=== PATIENT | female | born 2000 | race Caucasian/White ===

== ENCOUNTER 2024-01-23 08:00 | Outpatient (CLI) | payer OTHER ==
[2024-01-23 21:19] LABS: CHLAMYDIA TRACHOMATIS DNA NEGATIVE (NEGATIVE); NEISSERIA GONORRHOEAE DNA NEGATIVE (NEGATIVE); TRICHOMONAS VAGINALIS DNA NEGATIVE (NEGATIVE)
== END 2024-01-23 23:59 | disposition home or self-care (01) ==
LOC: LAB.WC 08:00
PROVIDERS: ATTEND Obstetrics & Gynecology
DX: Z11.3 Encounter for screening for infections with a predominantly sexual mode of transmission (principal)
CPT/HCPCS: 87491; 87591; 87661

== ENCOUNTER 2024-03-12 14:47 | Outpatient (CLI) | payer OTHER ==
--- NOTE | 2024-03-12 18:24 | Ultrasound Report ---
PROCEDURE: OB Anatomy Scan INDICATIONS: SUPERVISION OF NORMAL OUTSIDE/PRIOR DATING DATA: Last menstrual period (LMP): 10/16/2023. LMP-based estimated date of delivery (ALDA): 07/22/2024. First dating scan (date and location): 01/02/2024. Estimated date of delivery (ALDA) from first dating scan: 07/26/2024. The below data below was generated using the working ALDA of 07/26/2024 TECHNIQUE: Ultrasound of the gravid uterus was performed and recorded. COMPARISON: 01/02/2024 FINDINGS: General: A single live intrauterine gestation is present. Presentation: Variable Placenta: Placental position is posterior without previa. Amniotic fluid index: 9.7 cm, 5.6 percentile for gestational age. heart rate: 143 beats per minute. Maternal cervical canal: 3.3 cm long; normal length is 2.5 cm or more. biometrics: Biparietal diameter: 4.5 cm, 19 week 4 day, 4.6 percentile Head circumference: 17.5 cm, 20 week 6 day, 6.6 percentile Abdominal circumference: 15.6 cm, 20 week 4 day, 32.2 percentile Femur length: 3.4 cm, 20 week 4 day, 23 percentile Estimated gestational age by working dates: 21 week 1 day Composite gestational age by current ultrasound: 20 week 2 day Estimated weight and percentile: 365 g, 19.9 percentile Measurement variability in biometric dating: +/- 10 days from 12-20 weeks gestation, +/- 2 weeks from 20-30 weeks gestation, +/- 3 weeks at 30 weeks gestation or more. Anatomic survey: Neuro: Ventricles are non-dilated at less than 10 mm. Cisterna magna is normal at 3-11 mm. Cerebel lum is normal in size and morphology. Nuchal skin fold: Normal at less than 6 mm between 14-20 weeks gestational age. Face: Nose and lips, facial profile are normal. Spine: No evidence for spina bifida. Heart: 4-chambered heart is present. Right ventricular outflow tract not well observed Diaphragm: Diaphragm is intact. Stomach: Left-sided stomach is present. Kidneys: No hydronephrosis. Normal is less than 5 mm in 2nd trimester, less than 7 mm in 3rd trimester. Cord: 3-vessel cord has orthotopic insertion. Bladder: Normal in size. Extremities: All 4 extremities identified. Other: Not applicable. IMPRESSION: Single live intrauterine consistent with 20 week 2 day gestation by current ultrasound Right ventricular outflow tract not well observed on current exam. Attention on follow-up. Otherwise, unremarkable anatomic survey Reviewed by: Simone Ordonez MD on 03/12/2024 5:22 PM AKDT Approved by: Simone Ordonez MD on 03/12/2024 5:22 PM AKDT Station ID: [id number]
== END 2024-03-12 14:48 | disposition home or self-care (01) ==
LOC: DI 14:47
PROVIDERS: ATTEND Obstetrics & Gynecology
DX: Z34.92 Encounter for supervision of normal pregnancy, unspecified, second trimester (principal); Z36.89 Encounter for other specified antenatal screening

== ENCOUNTER 2024-04-09 12:36 | Outpatient (CLI) | payer OTHER ==
--- NOTE | 2024-04-09 15:51 | Ultrasound Report ---
PROCEDURE: OB Follow up INDICATIONS: SUPERVISION OF OUTSIDE/PRIOR DATING DATA: Last menstrual period (LMP): 10/16/2023. LMP-based estimated date of delivery (ALDA): 07/22/2024. First dating scan (date and location): 01/02/2024. Estimated date of delivery (ALDA) from first dating scan: 07/26/2024. The below data below was generated using the sonographic ALDA of 07/26/2024 TECHNIQUE: Real-time scanning was performed of the fetus, with image documentation and biometric measurements. Endovaginal scanning: Not performed. COMPARISON: 03/12/2024 FINDINGS: General: A single living intrauterine gestation is present. Presentation: Vertex Placenta: Placental position is posterior, without previa. Amniotic fluid index: 11.6 cm, deepest pocket is 3.3 cm, normal for gestational age. heart rate: 143 beats per minute. Maternal cervical canal: Closed and 2.9 cm long; normal length is 2.5 cm or more. Estimated gestational age from initial scan: 24 weeks 4 days Other: 4 chambered heart and normal right ventricular outflow tract was well seen. IMPRESSION: Single live intrauterine is in vertex presentation. There was good visualization of a normal heart and right ventricular outflow tract there by com pleting a normal anatomic survey. Closed cervix and normal amniotic fluid volume. Posterior placenta. Reviewed by: Shelly Ortiz MD on 04/09/2024 3:49 PM PDT Approved by: Shelly Ortiz MD on 04/09/2024 3:49 PM PDT Station ID: [id number]
== END 2024-04-09 12:37 | disposition home or self-care (01) ==
LOC: DI 12:36
PROVIDERS: ATTEND Obstetrics & Gynecology
DX: Z34.92 Encounter for supervision of normal pregnancy, unspecified, second trimester (principal)

== ENCOUNTER 2024-04-16 11:09 | Outpatient (CLI) | payer OTHER ==
[2024-04-16 12:16] LABS: HCT - HEMATOCRIT 38.2 % (37.0-47.0); HGB - HEMOGLOBIN 12.5 g/dL (12.0-16.0); MEAN CORPUSCULAR HEMOGLOBIN 29.8 pg (27.0-31.0); MEAN CORPUSCULAR HGB CONC 32.7 g/dL (32.0-36.0); RED BLOOD COUNT 4.2 10^6/uL (4.20-5.40); RED CELL DISTRIBUTION WIDTH 13.2 % (12.0-15.0); WHITE BLOOD COUNT 12.2 x10^3/uL (4.8-10.8)
[2024-04-17 05:12] LABS: RPR Non Reactive (Non Reactive)
== END 2024-04-16 11:10 | disposition home or self-care (01) ==
LOC: LAB 11:09
PROVIDERS: ATTEND Nurse Practitioner
DX: Z34.90 Encounter for supervision of normal pregnancy, unspecified, unspecified trimester (principal)
CPT/HCPCS: 36415; 82950; 85027; 86592

== ENCOUNTER 2024-06-25 12:04 | Outpatient (CLI) | payer OTHER ==
--- NOTE | 2024-06-26 16:43 | Ultrasound Report ---
PROCEDURE: OB Follow up INDICATIONS: UTERINE SIZE DATE DISCREPENCY OUTSIDE/PRIOR DATING DATA: Last menstrual period (LMP): 10/16/2023. LMP-based estimated date of delivery (ALDA): 07/22/2024. First dating scan (date and location): 01/02/2024. Estimated date of delivery (ALDA) from first dating scan: 07/26/2024. The below data below was generated using the working ALDA of 07/26/2024 TECHNIQUE: Ultrasound of the gravid uterus was performed and recorded. COMPARISON: None. FINDINGS: General: A single live intrauterine gestation is present. Presentation: Vertex Placenta: Placental position is posterior fundal without previa. Amniotic fluid index: 11.6 cm, within normal limits for gestational age. heart rate: 133 beats per minute. Maternal cervical canal: 3.8 cm long; normal length is 2.5 cm or more. biometrics: Biparietal diameter: 8.3 cm, 33 week 3 day, 6.6 percentile Head circumference: 31.1 cm, 34 week 5 day, 7.3 percentile Abdominal circumference: 31.9 cm, 35 week 6 day, 66.5 percentile Femur length: 6.8 cm, 33 week 0 day, 29.9 percentile Estimated gestational age by working dates: 35 week 4 day Composite gestational age by current ultrasound: 34 week 5 day Estimated weight and percentile: 2630 g, 39.7 percentile Measurement variability in biometric dating: +/- 10 days from 12-20 weeks gestation, +/- 2 weeks from 20-30 weeks gestation, +/- 3 weeks at 30 weeks gestation or more. Other: Not applicable. IMPRESSION: Single live intrauterine consistent with 34 week 5 day gestation by current ultrasound Reviewed by: Simone Ordonez MD on 06/26/2024 3:42 PM ANNE MARIE Approved by: Simone Ordonez MD on 06/26/2024 3:42 PM AKDT Station ID: [id number]
== END 2024-06-25 12:05 | disposition home or self-care (01) ==
LOC: DI 12:04
PROVIDERS: ATTEND Nurse Practitioner
DX: O26.843 Uterine size-date discrepancy, third trimester (principal); Z3A.34 34 weeks gestation of pregnancy; Z36.85 Encounter for antenatal screening for Streptococcus B
CPT/HCPCS: 87797

== ENCOUNTER 2024-06-25 15:54 | Outpatient (CLI) | payer OTHER | END 2024-06-25 15:55 | disposition home or self-care (01) | LOC: LAB.WC 15:54 | PROVIDERS: ATTEND Nurse Practitioner | DX: Z36.85 Encounter for antenatal screening for Streptococcus B (principal) | CPT/HCPCS: 87797 ==

== ENCOUNTER 2024-07-09 15:01 | Outpatient (CLI) | payer OTHER ==
[2024-07-09 15:18] LABS: HGB - HEMOGLOBIN 13.1 g/dL (12.0-16.0); MEAN CORPUSCULAR HEMOGLOBIN 29.2 pg (27.0-31.0); MEAN CORPUSCULAR HGB CONC 32.8 g/dL (32.0-36.0); MEAN CORPUSCULAR VOLUME 89.3 fL (81.0-99.0); MEAN PLATELET VOLUME 10.4 fL (7.9-10.8); RED BLOOD COUNT 4.48 10^6/uL (4.20-5.40); RED CELL DISTRIBUTION WIDTH 13.4 % (12.0-15.0); WHITE BLOOD COUNT 12.8 x10^3/uL (4.8-10.8)
[2024-07-09 15:29] LABS: ALBUMIN 3.4 g/dL (3.2-5.5); BILIRUBIN,TOTAL 0.3 mg/dL (0.2-1.0); CALCIUM 9.2 mg/dL (8.5-10.3); CREATININE 0.4 mg/dL (0.6-1.3); POTASSIUM 3.7 mmol/L (3.5-4.5); TOTAL PROTEIN 6.8 g/dL (6.4-8.9); URIC ACID 5.8 mg/dL (2.3-6.6)
[2024-07-09 15:47] LABS: CREATININE,URINE 149.3 mg/dL; PROTEIN/CREATININE RATIO,URINE 0.2 (<=0.2)
== END 2024-07-09 15:02 | disposition home or self-care (01) ==
LOC: LAB.WC 15:01
PROVIDERS: ATTEND Nurse Practitioner
DX: Z34.90 Encounter for supervision of normal pregnancy, unspecified, unspecified trimester (principal); Z36.85 Encounter for antenatal screening for Streptococcus B; R51.9 Headache, unspecified
CPT/HCPCS: 36415; 80053; 82570; 83615; 84156; 84550; 85027

== ENCOUNTER 2024-07-18 07:33 | Inpatient (IN) | payer OTHER ==
--- NOTE | 2024-07-18 08:19 | HISTORY & PHYSICAL EXAMINATION ---
Admit History - Visit Reason Visit Reason: Contractions, Membranes rupture - : 1 Parity: 0 Premature: 0 Ectopic: 0 : 0 Care: positive: [facility] Risk/History: positive: None Complications This : positive: None Smoking Status: Never smoker - Mother's Labs Mother's Blood Type: positive: B Mother's RH: positive: Positive GBS: positive: Group B Step Negative Rubella Status: positive: Non-immune - Other Maternal History Other Maternal History: This 23 yo @ 39+3 weeks by LMP and confirmed by 10+4 week ultrasound. She was able to get sleep last night but she woke up with a single, intense contraction felt "a pop" and her water broke at about (SROM @0630). She continued to leak clear fluid and her contractions grew more intense and closer together. Upon arrival her cervix was 6/90/-2 and vertex with intact membranes. She is agreeable to admission for expectant labor management at this time. She has been a patient of [facility] care for the duration of her which has remained uncomplicated. No Headache, visual changes or right upper quadrant abdominal pain. Denies significant N/V. Denies urinary urgency or dysuria. In the event of an emergency, accepts the administration of blood products. ROS: All other symptoms reviewed and were negative except per HPI. Recent BP: 102/64 Labs: pending Last u/s EFW: 06/25/2024 EFW 39%, 2630g Total maternal weight gain: 35# OB Hx: G1: Current Medical Hx: No significant Surgical Hx: None Social Hx: Monogamous with male partner. Denies current use of alcohol or tobacco, marijuana or other recreational drugs. Reports that she is safe in current relationship. Family Hx: Denies family history of congenital anomalies, Cystic Fibrosis or chromosomal abnormalities Allergies: NKDA Medications: PNV G1PO LMP: 10/16/2023 ALDA by LMP: 07/22/2024 01/02/2024/10+4 /C/W dates Final ALDA: 07/22/2024 FOB: Jerry sex: It's a BOY! Pre- Weight:107.4 BMI: 18.5 Blood type: B+ Antibody: neg CBC: PLT 274 HCT 39.4 HGB 12.9 RUB: NOT IMMUNE VZV: NOT IMMUNE HBsAg: negative HepC: NR RPR/AB-EIA: NR HIV: NR PAP: Due GC/CT: 01/23 negative HSV: denies in self and partner Genetic testing: Declines Covid: vaccine x2; ill once Flu: did not get last year FAS: 03/12 Placenta: Posterior Cord: 3VC FRANCK: 9.7cm EFW: 365g 19.9%tile 50gm OGCT: 103 TDAP: Given 05/14 Breast Pump: given 05/14 3rd trimester PLT 265; HGB 12.5 HCT 38.2 RPR Negative GBS:Negative Delivery plan: Contraception: Possible Nexplanon. Unsure Physical exam: Normocephalic, atraumatic Cardiac: No edema Lungs: No increased work of breathing Abdomen gravid, soft, nontender. EFW 3000g FHR baseline 145, moderate variability, + accelerations, no decelerations Contractions palpate moderate every 2-3 minutes with soft resting tone SVE 6/90/-2, vertex, grossly ruptured. Clear fluid Mood is good. Assessment: 23 yo @ 39+3 weeks gestation by 10+4 wk U/S Active Labor FHR 145 Cat I GBS NEG Plan: Admit to [facility] for expectant management Intermittent heart rate auscultation after NST. Continuous EFM as indicated Nitrous oxide PRN. Epidural PRN Maternal Request. Anticipate . Patient verbally consents to my participation in her care in my role as a student nurse welding supervisor. CHRISTIN Grijalva, Student Nurse Stranner (Mariah Chappell) - HPI Current EDU 07/22/24 Gestation 39 Weeks and 3 Days 1 Para 0 Vital Signs Temperature 99.0 F 07/18/24 08:19 Heart Rate 85 07/18/24 08:19 Respiratory Rate 16 07/18/24 08:19 Blood Pressure 102/64 07/18/24 08:19 Temperature 99.0 F 07/18/24 08:25 Heart Rate 85 07/18/24 08:19 Respiratory Rate 16 07/18/24 08:19 Blood Pressure 102/64 07/18/24 08:19 O2 Saturation If not protocol: Oxygen Flow, liters/minute - NST Procedure NST Procedure Start Date 07/18/24 Start Time 08:10 Stop Time 08:30 Vibroacoustic Stimulation Used No Patient States Movement Yes Meds/Allgy - Home Medications Home Medications: Ambulatory Orders Medication Instructions Recorded Confirmed Vit No.129/Iron/Folic 1 tab PO DAILY 02/16/24 07/18/24 [ One Daily Tablet] - Allergies Allergies/Adverse Reactions: Allergies Allergy/AdvReac Type Severity Reaction Status Date / Time No Known Drug Allergies Allergy Verified 03/12/24 16:09 Physical - Abdominal Exam Vital Signs: Temp Pulse Resp BP Pulse Ox O2 Flow Rate 99.0 F 85 16 102/64 07/18/24 08:25 07/18/24 08:19 07/18/24 08:19 07/18/24 08:19 Plan for Labor - Plan For Labor I expect patient to be DC'd or transferred within 96 hours.: Yes - Plan For Labor Plan for Labor: I saw [place] at bedside and introduced myself to her and her partner. She is now complete with plans to start pushing. I have reviewed and agree with do cumentation by Mariah Chappell, student nurse welding supervisor and MOBILITY MANAGER. Shereen Bruner MD (Shereen Bruner)
[2024-07-18] MEDS ORDERED: fentaNYL 100 MCG/2 ML VIAL IVP PRN (08:22)
[2024-07-18] MEDS ORDERED: hydrALAZINE INJ 20 MG/ML VIAL IVP PRN ×2 (08:22)
[2024-07-18] MEDS ORDERED: SODIUM CHLORIDE FLUSH 0.9% 10 ML SYRINGE IVP PRN (08:22)
[2024-07-18] MEDS ORDERED: miSOPROStoL 200 MCG TABLET BC PRN (08:22)
[2024-07-18] MEDS ORDERED: lidocaine 1% 20 ML MDV ID PRN (08:22)
[2024-07-18] MEDS ORDERED: TERBUTALINE 1 MG/ML VIAL SUBQ PRN (08:22)
[2024-07-18] MEDS ORDERED: CARBOPROST TROMETHAMINE 250 MCG/ML VIAL IM PRN (08:22)
[2024-07-18] MEDS ORDERED: LABETALOL 20 MG/4 ML SYRINGE IVP PRN ×3 (08:22)
[2024-07-18] MEDS ORDERED: miSOPROStoL 200 MCG TABLET PR PRN (08:22)
[2024-07-18] MEDS ORDERED: NIFEdipine 10 MG CAPSULE PO PRN (08:22)
[2024-07-18] MEDS ORDERED: METHYLERGONOVINE 0.2 MG/ML VIAL IM PRN (08:22)
[2024-07-18] MEDS ORDERED: OXYTOCIN 10 UNIT/ML VIAL IM PRN (08:22)
[2024-07-18] MEDS ORDERED: SODIUM CHLORIDE FLUSH 0.9% 10 ML SYRINGE IVP SCH (09:00)
[2024-07-18 09:07] LABS: BASOPHILS % (AUTO) 0.3 %; EOSINOPHILS # (AUTO) 0.1 10^3/uL (0.0-0.7); EOSINOPHILS % (AUTO) 0.4 %; HCT - HEMATOCRIT 39.7 % (37.0-47.0); HGB - HEMOGLOBIN 13.2 g/dL (12.0-16.0); LYMPHOCYTES # (AUTO) 2.6 10^3/uL (1.5-3.5); LYMPHOCYTES % (AUTO) 22.6 %; MEAN CORPUSCULAR HEMOGLOBIN 29.3 pg (27.0-31.0); MEAN CORPUSCULAR HGB CONC 33.2 g/dL (32.0-36.0); MEAN CORPUSCULAR VOLUME 88.2 fL (81.0-99.0); MEAN PLATELET VOLUME 9.8 fL (7.9-10.8); MONOCYTES # (AUTO) 0.8 10^3/uL (0.0-1.0); MONOCYTES % (AUTO) 7.2 %; NEUTROPHILS # (AUTO) 7.9 10^3/uL (1.5-6.6); NEUTROPHILS % (AUTO) 68.8 %; PLT - PLATELET COUNT 252 10^3/uL (130-450); RED CELL DISTRIBUTION WIDTH 13.4 % (12.0-15.0); WHITE BLOOD COUNT 11.6 x10^3/uL (4.8-10.8)
[2024-07-18] MEDS: LACTATED RINGERS 1,000 ML IV PRN (09:35)
[2024-07-18] MEDS ORDERED: LIDOCAINE 2%-EPI 1:100000 20 ML MDV ONE (10:04)
[2024-07-18] MEDS ORDERED: ROPIVACAINE 0.2% 200 MG/100 ML BAG EP ONE (10:04)
[2024-07-18] MEDS ORDERED: diphenhydrAMINE INJ 50 MG/ML VIAL IVP PRN (11:18)
[2024-07-18] MEDS ORDERED: ROPIVACAINE 0.2% 200 MG/100 ML BAG EP PRN (11:18)
[2024-07-18] MEDS ORDERED: NALOXONE 0.4 MG/ML VIAL IVP PRN (11:18)
[2024-07-18] MEDS ORDERED: ONDANSETRON 4 MG/2 ML VIAL IVP PRN (11:18)
[2024-07-18] MEDS ORDERED: NALBUPHINE 10 MG/ML AMP IVP PRN (11:18)
[2024-07-18] MEDS ORDERED: METOCLOPRAMIDE 10 MG/2 ML VIAL IVP PRN (11:18)
[2024-07-18] MEDS ORDERED: ePHEDrine 50 MG/ML VIAL IVP PRN (11:18)
--- NOTE | 2024-07-18 11:18 | ANESTHESIA ---
Pre-Anesthesia VS, & Labs - Diagnosis , 39+3 weeks, 6cm in labor desires epidural - Procedure placement of labor epidural Vital Signs: Temp Pulse Resp BP Pulse Ox O2 Flow Rate 37.2 C 85 16 102/64 07/18/24 08:25 07/18/24 08:19 07/18/24 08:19 07/18/24 08:19 Height: 5 ft 4 in Weight (kg): 64.41 kg Body Mass Index: 24.3 BMI Classification: Normal - NPO Last Fluid Intake: now on clears only - Is Patient ?: Yes - Lab Results Current Lab Results: Laboratory Tests 07/18/24 08:59: WBC 11.6 H, RBC 4.50, Hgb 13.2, Hct 39.7, MCV 88.2, MCH 29.3, MCHC 33.2, RDW 13.4, Plt Count 252, MPV 9.8, Neut # (Auto) 7.9 H, Lymph # (Auto) 2.6, Bradley # (Auto) 0.8, Eos # (Auto) 0.1, Baso # (Auto) 0.0, Absolute Nucleated RBC 0.00, Nucleated RBC % 0.0 07/18/24 08:59: Blood Type A POSITIVE, Antibody Screen NEGATIVE Lab results reviewed: Yes Fish Bones: 07/18/24 08:59 Home Medications and Allergies Active Medications Acetaminophen (Acetaminophen 500 Mg Tablet) 1,000 mg PO Q8H PRN PRN Reason: Mild Pain or Fever>38C(100.4F) Carboprost Tromethamine (Carboprost Tromethamine 250 Mcg/Ml Vial) 250 mcg IM .ONCE PRN PRN Reason: Hemorrhage Fentanyl (Fentanyl 100 Mcg/2 Ml Vial) 50 mcg IVP Q1H PRN PRN Reason: Severe Pain (score 7-10) Hydralazine HCl (Hydralazine Inj 20 Mg/Ml Vial) 5 - 10 mg IVP Q20M PRN; Prot ocol PRN Reason: SBP> or= 160 OR DBP> or= 110 Hydralazine HCl (Hydralazine Inj 20 Mg/Ml Vial) 10 mg IVP .ONCE PRN; Protocol PRN Reason: SBP> or= 160 OR DBP> or= 110 Lactated Ringer's (Lr) 500 mls @ 999 mls/hr IV PRN PRN PRN Reason: distress/resuscitation Last Admin: 07/18/24 09:35 Dose: 999 mls/hr Oxytocin/Sodium Chloride (Pitocin/Sodium Chloride) 500 mls @ 999 mls/hr IV PRN PRN; Protocol PRN Reason: POST- HEMORR PREVENTION Tranexamic Acid (Tranexamic 1,000 Mg/100ml-Nacl) 1,000 mg in 100 mls @ 600 mls/hr IV Q30M PRN PRN Reason: EBL >1200mL and within 3hr Labetalol HCl (Labetalol 20 Mg/4 Ml Syringe) 20 - 80 mg IVP Q10M PRN; Protocol PRN Reason: SBP> or= 160 OR DBP> or= 110 Labetalol HCl (Labetalol 20 Mg/4 Ml Syringe) 20 mg IVP .ONCE PRN; Protocol PRN Reason: SBP> or= 160 OR DBP> or= 110 Labetalol HCl (Labetalol 20 Mg/4 Ml Syringe) 20 - 40 mg IVP Q10M PRN; Protocol PRN Reason: SBP> or= 160 OR DBP> or= 110 Lidocaine HCl (Lidocaine 1% 20 Ml Mdv) 20 ml ID .ONCE PRN PRN Reason: PERINEAL REPAIR Stop: 07/21/24 08:22 Methylergonovine Maleate (Methylergonovine 0.2 Mg/Ml Vial) 0.2 mg IM .ONCE PRN PRN Reason: Hemorrhage Misoprostol (Misoprostol 200 Mcg Tablet) 600 mcg BC .ONCE PRN PRN Reason: Hemorrhage Misoprostol (Misoprostol 200 Mcg Tablet) 800 mcg NE .ONCE PRN PRN Reason: Hemorrhage Nifedipine (Nifedipine 10 Mg Capsule) 10 - 20 mg PO Q20M PRN; Protocol PRN Reason: SBP> or= 160 OR DBP> or= 110 Oxytocin (Oxytocin 10 Unit/Ml Vial) 10 unit IM .ONCE PRN PRN Reason: Step One if no IV access. Sodium Chloride (Sodium Chloride Flush 0.9% 10 Ml Syringe) 10 ml IVP PRN PRN PRN Reason: NEEDED PER PROVIDER ORDERS Sodium Chloride (Sodium Chloride Flush 0.9% 10 Ml Syringe) 10 ml IVP Q8H JESSICA Terbutaline Sulfate (Terbutaline 1 Mg/Ml Vial) 0.25 mg SUBQ .ONCE PRN PRN Reason: Tachystole Vit No.129/Iron/Folic [ One Daily Tablet] 1 tab PO DAILY 02/16/24 Allergies/Adverse Reactions: Allergies Allergy/AdvReac Type Severity Reaction Status Date / Time No Known Drug Allergies Allergy Verified 03/12/24 16:09 Anes History & Medical History - Anesthetic History Anesthesia Complications: reports: No previous complications - Medical History Cardiovascular: reports: None Pulmonary: reports: None Gastrointestinal: reports: None Urinary: reports: None Neuro: reports: None Musculoskeletal: reports: None Endocrine/Autoimmune: reports: None Blood Disorders: reports: None Skin: reports: None Smoking Status: Never smoker Psychosocial: reports: No issues indicated - Obstetrical History : 1 Parity: 0 Events: reports: None Complications: reports: None Exam General: Alert, Oriented x3 Dental: WNL Mouth Openin Fingerbreadth Neck Mobility: Normal Mallampati classification: II Thyromental Distance: 4-6 cm Respiratory: Lungs clear Cardiovascular: Regular rate Plan Anesthesia Type: Epidural Consent for Procedure(s) Verified and Reviewed: Yes Code Status: Attempt Resuscitation ASA classification: 1-Healthy patient Is this case an emergency?: No
--- NOTE | 2024-07-18 11:25 | ANESTHESIA PROCEDURE NOTE ---
Anesthesia Epidural Template - Patient Report Patient Reports: positive: Pain controlled (Labor epidural placed; sitting; sterile prep and drape; 1% lido local L3-4, one pass with 17g tuohy, GILDA 5cm, dural puncture with 25g pencil point, catheter 11 cm/skin; neg heme, neg csf, transient L paresthesia, neg test dose of 2% lido w epi/3ml; taped in place; pain 10/10 to 12/10) - Plan Plan: positive: Continue current management, Other
--- NOTE | 2024-07-18 11:31 | PHARMACY PROGRESS NOTE ---
- Best Possible Medication History Admit Date and Time: 07/18/24 0822 Processed by: Nursing Secondary Source(s): Physician records, Pharmacy records, Insurance records As the person ultimately responsible for medication therapy, providers are able to order a medication from an existing home medication list in [facility] via the "Reconcile Routine" prior to Confirmation of that medication by production support manager. Such practice is discouraged except when the physician, in their clinical judgment, deems that a medical need exists for a medication without regard to previous use.
[2024-07-18] MEDS: FAMOTIDINE 20 MG TABLET PO SCH (13:50)
[2024-07-18] MEDS: OXYTOCIN/SODIUM CHLORIDE 500 ML IV PRN (14:20)
[2024-07-18] MEDS: TRANEXAMIC ACID IN NACL 1,000 MG/100 ML BAG IV PRN (14:25)
[2024-07-18] MEDS ORDERED: WITCH HAZEL/GLYCERIN 1 PAD TOP PRN (14:49)
[2024-07-18] MEDS ORDERED: HYDROCORTISONE 1% CREAM 28 GM TUBE PR PRN (14:49)
--- NOTE | 2024-07-18 14:55 | DELIVERY NOTE ---
Delivery Note - Labor Labor: positive: Spontaneous - Delivery Method Delivery Method: positive: Spontaneous vaginal delivery - Presentation Presentation: positive: Vertex, OA - occiput anterior - Nuchal Cord Nuchal Cord: positive: Present, Reduced - Anesthetic Anesthetic Type: - Amniotic Fluid Description Amniotic Fluid Description: positive: Clear - Vacuum Use Indication for Vacuum Use: positive: Prolonged 2nd stage - Episiotomy Type Episiotomy Type: positive: None - Laceration Laceration: positive: 1st degree, Perineal, Vaginal (left vaginal wall laceration) - Suture Suture Type: positive: Vicryl Suture Size: positive: 3-0 - Delivery Outcome Delivery Outcome: positive: Livebirth - [place] sex: positive: Male - Cord Cord: positive: 3 vessels - Placenta Placenta: positive: Intact, Spontaneous - Estimated Blood Loss Estimated Blood Loss (in cc): 300 - Post Delivery Events Post Delivery Events: positive: No post delivery events - Delivery Comments (Free Text/Narrative) Delivery Comments (Free Text/Narrative): This 23 -year-old, G 1P0 @ 39+3 weeks gestation by 10 week ultrasound/ LMP presented on 07/18/24@ 0730 after SROM in active labor and in condition. Cervix was 6cm upon admission and Vertex presentation by exam. GBS negative. No augmentation. FHR pattern demonstrated 150's and primarily category I baseline prior to second stage. Normal labor course. Epidural placed upon maternal request. SROM occurred @ 0630. She then progressed to complete/complete @ 1136 and second stage began. Episodes of tachycardia through second stage but moderate variability maintained and patient remained afebrile. : Normal spontaneous vaginal delivery of a viable male on 07/18/2024 @1415. Nuchal x one, reduced. The was placed on maternal abdomen, stimulated, dried and placed skin to skin. Apgars 7 & 9 @ 1 & 5 minutes. The umbilical cord was allowed to stop pulsating at which time it was doubly clamped by delivering provider and cut by FOB. 3VC. Cord blood was obtained. Fundal massage and gently cord traction applied for active management of the third stage, placenta delivered spontaneously and intact and appeared normal @ 1421. EBL 300. Placenta was WAS NOT sent to pathology. Pitocin administered via IV for hemostasis and added to the IV fluid and allowed to run freely. Uterine massage was performed until uterus was deemed firm. Inspection perineum noted a first degree perineal laceration extending to the left vaginal side wall. Tissue very edematous. Laceration actively bleeding prior to repair and 1g of TXA administered through IV. Repaired in standards fashion under sterile conditions with running suture of 3-O vicryl on rapide. Upon re-inspection the tissue was hemostatic. Uterus again massaged and found to be firm. Needle and sponge counts were correct. Family bonding well. Both mother and baby are in stable condition. Patient verbalized consent for my participation in her delivery in my role as Student Nurse Manager Diversity. CHRISTIN Grijalva, Student Nurse Manager Diversity
[2024-07-18] MEDS: IBUPROFEN 800 MG TABLET PO SCH (18:00)
[2024-07-18] MEDS: ACETAMINOPHEN 500 MG TABLET PO PRN (21:10)
[2024-07-18] MEDS: DOCUSATE SODIUM 100 MG CAPSULE PO SCH (21:36)
--- NOTE | 2024-07-19 02:58 | MISCELLANEOUS PROVIDER NOTE ---
Miscellaneous Provider Note - - Note: I was present for delivery and perineal repair performed by Mariah Chappell, student nurse fish peddler and PRIVATE BRANCH EXCHANGE OPERATOR. I agree with her documentation. Shereen Bruner MD
--- NOTE | 2024-07-19 13:15 | PROVIDER PROGRESS NOTE ---
Subjective - Prog Note Date Prog Note Date: 07/19/24 Prog Note Time: 13:00 - Subjective Pt reports feeling: Improved Subjective: Comfortable. Appropriate lochia. Ambulating. Voiding. Tolerating regular diet. , latch is good but appreciates assistance while admitted. Mood is good. Objective - Vital Signs/Intake & Output Reviewed Vital Signs: Yes Vital Signs: Vital Signs x48h Temp Pulse Resp BP 07/19/24 12:20 98.4 F 56 L 18 105/67 07/19/24 08:50 98.8 F 71 18 107/67 Intake & Output: Intake & Output 07/16/24 07/17/24 07/18/24 07/19/24 23:59 23:59 23:59 23:59 Intake Total 1161.25 Output Total 550 Balance 611.25 - Objective General Appearance: positive: No acute distress Eyes Bilateral: positive: EOMI Respiratory: positive: No respiratory distress Abdomen: positive: Non-tender Back: positive: Nml inspection Skin: positive: Color nml Extremities: positive: Non-tender Neurologic/Psychiatric: positive: Oriented x3 - Lab Results Fish Bones: 07/18/24 08:59 Assessment/Plan - Problem List (1) care following vaginal delivery Impression: 23yo s/p 07/19 at 39.3w following active labor admission PPD#1 doing well - Continue care and / care support - Anticipate discharge tomorrow
[2024-07-20] MEDS: LIDOCAINE 1% 2 ML VIAL SUBQ ONE (10:37)
[2024-07-20] MEDS: ETONOGESTREL 68 MG IMPLANT SUBQ ONE (10:38)
[2024-07-20] MEDS: VARICELLA VACCINE LIVE/PF 1,350 UNIT/0.5 ML VIAL SUBQ ONE (10:39)
[2024-07-20] MEDS: MEASLES,MUMPS & RUBELLA VACC 0.5 ML VIAL SUBQ ONE (10:40)
[2024-07-20 10:49] VITALS: BP 121/69; O2SAT 100
--- NOTE | 2024-07-20 11:03 | PROVIDER PROGRESS NOTE ---
Subjective - Prog Note Date Prog Note Date: 07/20/24 Prog Note Time: 11:00 - Subjective Pt reports feeling: Improved Objective - Vital Signs/Intake & Output Reviewed Vital Signs: Yes Vital Signs: Vital Signs x48h Temp Pulse Resp BP Pulse Ox 07/20/24 10:42 98.6 F 84 16 121/69 100 07/20/24 05:28 98.4 F 88 16 125/72 Intake & Output: Intake & Output 07/17/24 07/18/24 07/19/24 07/20/24 23:59 23:59 23:59 23:59 Intake Total 1161.25 Output Total 550 Balance 611.25 - Objective General Appearance: positive: No acute distress - Lab Results Fish Bones: 07/18/24 08:59 Assessment/Plan - Problem List (2) Nexplanon insertion Impression: Informed consent obtained for desired Nexplanon insertion. Risks, benefits, alternatives of Nexplanon reviewed. She has had Nexplanon before and would like to proceed, expressed understanding. Insertion site on left arm identified, 8cm from medial epicondyle of humerus and 3cm posterior to sulcal groove. 1.5cc 1% lidocaine injected just under the skin along insertion tunnel. Area prepped with betadine. Nexplanon inserted per applicator protocol. Implant palpated subdermally by myself and patient. Bandaid and pressure dressing applied. Tolerated well. EBL 5cc. Nexplanon patient card completed for patient to keep. Nexplanon Exp LOT [id number]
--- NOTE | 2024-07-20 11:26 | Discharge Plan ---
Discharge Plan Problem Reviewed?: Yes Disposition: Home, Self Care Condition: Good Diet: Regular Activity Restrictions: Activity as Tolerated Shower Restrictions: No Driving Restrictions: No (Drive when comfortable and no narcotics) Weight Bearing: Full Weight Instruction Topics: Vaginal After, Depression No Smoking: If you smoke, Please STOP! Call for help. Follow-up with: Mariah Chappell ARNP [Provider Admit Priv/Credential] -
--- NOTE | 2024-07-20 11:29 | DISCHARGE SUMMARY ---
Discharge Summary Admit Date: 07/18/24 Discharge Date: 07/20/24 Discharging Provider: Kat Gusman DO Code Status: Attempt Resuscitation Condition at Discharge: Good Discharge Disposition: 01 Home, Self Care Discharge Facility Name: [facility] - DIAGNOSES Admission Diagnoses: Active labor 39w - HPI History of Present Illness: 23yo presented 8 at 39.3w in labor and membranes ruptured. - HOSPITAL COURSE Hospital Course: 23yo presented 8 at 39.3w in labor and membranes ruptured. She received epidural. Progressed to complete and . recovery going well. Comfortable. Appropriate lochia. Ambulating. Voiding. Tolerating regular diet. well. Mood is good. Requested Nexplanon placement prior to discharge, Nexplanon placed and tolerated well. care and precautions reviewed. Follow up as scheduled or by 2 weeks. - ALLERGIES Allergies/Adverse Reactions: Allergies Allergy/AdvReac Type Severity Reaction Status Date / Time No Known Drug Allergies Allergy Verified 03/12/24 16:09 - MEDICATIONS Home Medications: Ambulatory Orders Medication Instructions Recorded Confirmed Vit No.129/Iron/Folic 1 tab PO DAILY 02/16/24 07/18/24 [ One Daily Tablet] - PHYSICAL EXAM AT DISCHARGE General Appearance: positive: No acute distress Eyes Bilateral: positive: EOMI Neck: positive: Nml inspection Respiratory: positive: No respiratory distress Abdomen: positive: Non-tender (FF) Skin: positive: Color nml Extremities: positive: Non-tender Neurologic/Psychiatric: positive: Oriented x3 - LABS Result Diagrams: 07/18/24 08:59 - QUALITY (Female Hip Fx Only) Was patient sent home on osteoporosis medication?: No - FOLLOW UP Follow Up: Follow up [facility] as scheduled 07/23 or by 2 weeks. - TIME SPENT Time Spent in Discharge (Minutes): 25
--- NOTE | 2024-07-20 12:44 | Labor Flowsheet ---
Labor Flowsheet Datetime Report Generated by CPN: 07/20/2024 12:44 Datetime: 07/20/2024 10:32 VITAL SIGNS NBP Sys/Elizabeth/Mean (mmHg): 121 : 69 : 83 Pulse: 84 Datetime: 07/18/2024 21:05 SpO2 (%): 97 Datetime: 07/18/2024 14:31 Stage of : Datetime: 07/18/2024 14:24 Membranes Ruptured Date/Time: 07/18/2024 06:23 Membranes Rupture Method: Spontaneous Amniotic Fluid Color: Clear Amniotic Fluid Amount: Moderate Amniotic Fluid Odor: Normal Datetime: 07/18/2024 14:21 LaborFlag: Labor Datetime: 07/18/2024 14:00 ASSESSMENT A Monitor Mode: Telemetry FHR Baseline Rate : 155 Variability: Moderate 6-25 bpm Category: Category II Datetime: 07/18/2024 13:53 Station: 2 Datetime: 07/18/2024 13:50 Patient Care Comments: Dr.Franc at bedside Datetime: 07/18/2024 13:40 STAGE 2 Pushing Position: Pushing Lithotomy Datetime: 07/18/2024 13:27 Temperature (C): 37.3 Datetime: 07/18/2024 13:00 Decelerations: Late Datetime: 07/18/2024 12:58 Stage 2 Comments: pt pushing with tug of war Datetime: 07/18/2024 12:47 COMMUNICATION Communication Comments: Dr.Franc at bedside Datetime: 07/18/2024 12:00 UTERINE ACTIVITY Monitor Mode: External Frequency (min): 2-3 Pattern: Normal: <= 5 Contractions in 10 Minutes Accelerations: 15X15 Datetime: 07/18/2024 11:36 Pushing Progress: Descent with Pushing Datetime: 07/18/2024 11:35 VAGINAL EXAM Dilatation (cm): 10.0 Effacement (%): 100 Exam by: Stephan Arango Datetime: 07/18/2024 11:30 Quality: Strong Duration (sec): 60-70 Resting Tone (Palpate): Relaxed Datetime: 07/18/2024 10:54 I/O Interventions: Ruvalcaba Cath Inserted Datetime: 07/18/2024 10:47 Patient Position/Activity: Left Lateral Datetime: 07/18/2024 10:43 PAIN Pain Scale: 1 Datetime: 07/18/2024 10:29 Epidural Procedure: Test Dose Datetime: 07/18/2024 10:09 PROCEDURE TIME OUT Procedure Verify: Correct Patient Identity; Correct Side and Site are Marked; Accurate Procedure Co nsent Form; Agreement on Procedure to be Done; Correct Patient Position; Safety Precautions Based on Patient History or Medication Use ANESTHESIA Anesthesia Plans: Epidural Epidural Positioning: Sitting Datetime: 07/18/2024 10:05 Anesthesia Comments: [id number], EMERGENCY MANAGEMENT CONSULTANT at bedside Datetime: 07/18/2024 08:23 PATIENT CARE IV/Blood Work: IV Started; IV Saline Locked Datetime: 07/18/2024 08:10 Vaginal Bleeding: None Cervix, Consistency: Soft Cervix, Position: Anterior
== END 2024-07-20 12:42 | disposition home or self-care (01) | DRG 807 ==
LOC: WFO 07:33 → FBP 07:34 → WFO 08:21 → FBP 08:22
PROVIDERS: ADMIT Obstetrics & Gynecology; ATTEND Obstetrics & Gynecology
PROC: 10E0XZZ Delivery of Products of Conception, External Approach (ICD-10-PCS; principal; 2024-07-18)
PROC: 0HQ9XZZ Repair Perineum Skin, External Approach (ICD-10-PCS; 2024-07-18)
PROC: 0JHF3HZ Insertion of Contraceptive Device into Left Upper Arm Subcutaneous Tissue and Fascia, Percutaneous Approach (ICD-10-PCS; 2024-07-20)
DX: O69.81X0 Labor and delivery complicated by cord around neck, without compression, not applicable or unspecified (principal); Z37.0 Single live birth; O70.0 First degree perineal laceration during delivery; O76 Abnormality in fetal heart rate and rhythm complicating labor and delivery; Z3A.39 39 weeks gestation of pregnancy
CPT/HCPCS: 36415; 59025; 59409; 85025; 86850; 86900; 86901; 90716; 99215; A9270; J7120; J7307